=== PATIENT | female | born 1985 | race Caucasian/White ===

== ENCOUNTER 2021-12-06 09:17 | Emergency (ER) | payer BC ==
[~2021-12-06] VITALS: Ht 180.3 cm; Wt 81.8 kg
[~2021-12-06 09:17] MED LIST: MOTRIN 600600 MG/TAB PO; PRENATAL VITAMI1 TA5 PO
[2021-12-06 09:30] VITALS: BP 111/79; TEMP 98.2
[2021-12-06 10:39] VITALS: PULSE 72
== END 2021-12-06 10:40 | disposition home or self-care (01) ==
LOC: COL.ER 09:17
DX: S83.422A Sprain of lateral collateral ligament of left knee, initial encounter (principal); X50.1XXA Overexertion from prolonged static or awkward postures, initial encounter

== ENCOUNTER → 2024-04-13 | Outpatient (CLI) | payer BC | LOC: MC.RAD 10:50 | DX: Z12.31 Encounter for screening mammogram for malignant neoplasm of breast (principal) ==